=== PATIENT | female | born 1935 | race Caucasian/White ===

== ENCOUNTER → 2017-11-09 | Outpatient (CLI) | payer MEDICARE, BC ==
[~2017-11-09] MED LIST: CALC500T PO; DOCU-144 PO; LEVO88TA PO; NASO17 NS; RTATR IH; TOLT4CAP PO; VALS1TAB61 PO
--- NOTE | 2017-11-10 10:29 | RADRPT ---
PROCEDURE: CT Chest without contrast. CLINICAL INDICATION: Persistent cough TECHNIQUE: CT scan of the chest without contrast was performed on a multidetector high-resolution CT scanner. Coronal and sagittal reformatted images were obtained from the axial source images. One or more of the following dose reduction techniques were used: Automated exposure control, adjustme nt of the mA and/or kV according to patient size, use of iterative reconstruction technique. DICOM images are available. The total exam CTDI equals 14.84 mGy and the total exam DLP equals 564.53 mGy -cm. COMPARISON: None available. FINDINGS: The lungs are clear. No focal opacification, effusion, pneumothorax, edema, or nodules are seen. T here is no pulmonary infiltrate. No mass lesion to suggest neoplasm is identified. The central tra cheobronchial tree is clear. The mediastinum is unremarkable without evidence for mass or lymphadenopathy. 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 The heart size is n ormal without evidence for pericardial thickening or effusion. The axillary regions, subpectoral regions, and supraclavicular regions are all unremarkable. There is no 1.1 cm hypodense right adrenal nodule is present, likely representing adenoma. The gallb ladder is surgically absent. A 5.8 cm left renal cyst is present. There is a 1.4 cm exophytic hyper dense left renal lesion pill The surrounding osseous structures are remarkable for degenerative spon dylosis of the spine. No osteolytic or osteoblastic lesion is detected. 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 IMPRESSION: 1. No mass, lymphadenopathy, or focal acute infiltrate is identified. 2. 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 This may result in dysphasia [place]. 3. Hypodense right adrenal nodule likely representing an adenoma. 4. Exophytic 1.4 cm indeterminate hyperdense left renal lesion, likely representing a hemorrhagic c yst. This can be further confirmed with ultrasound. 5. 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 RPTAT: JJ .Vincent Pavon MD, Date Time Electronically viewed and signed by .Vincent Pavon MD, MD on 11/10/2017 10:29 .A/
== END | disposition home or self-care (01) ==
LOC: C/S 14:03
PROVIDERS: ATTEND Internal Medicine
DX: R05 Cough (principal); R53.83 Other fatigue
CPT/HCPCS: 71250

== ENCOUNTER → 2017-11-14 | Outpatient (CLI) | payer MEDICARE, BC ==
--- NOTE | 2017-11-15 09:43 | RADRPT ---
PROCEDURE: Renal US. CLINICAL INDICATION: History of renal cysts. TECHNIQUE: Multiple sonographic images of the kidneys and urinary bladder were obtained. The imag es were reviewed on a PACS workstation. COMPARISON: CT scan of the chest dated 11/09/2017 which included the upper abdomen demonstrating a high attenuation 1.4 cm left renal mass. FINDINGS: The right kidney measures 8.4 cm. The left kidney measures 7.6 cm. There is a 0.7 cm benign cyst in the lower right kidney with no internal echoes or septations. There is a benign 5.1 cm cyst in the upper left kidney with no internal echoes or septations. There is a benign 1.1 x 1.3 cm cyst in the mid left kidney corresponding to the 1.4 cm left renal mass seen on prior CT scan. There are no internal echoes or septations. There is no hydronephrosis. There is no renal calculus. Renal parenchymal thickness is normal bilaterally. Echogenicity is normal bilaterally. The perirenal regions are normal with no fluid collection or mass. The urinary bladder is empty. IMPRESSION: 1. Benign bilateral renal cysts. 2. The high attenuation left renal 1.4 cm mass seen on prior CT scan is a benign cyst. 3. Empty bladder. 4. Otherwise normal renal ultrasound. RPTAT: QQ .Stewart Burk MD, Date Time Electronically viewed and signed by .Stewart Burk MD, on 11/15/2017 09:43 .R/
== END | disposition home or self-care (01) ==
LOC: U/S 09:58
PROVIDERS: ATTEND Internal Medicine
DX: N28.1 Cyst of kidney, acquired (principal)
CPT/HCPCS: 76775